=== PATIENT | female | born 1940 | race Caucasian/White ===

== ENCOUNTER 2018-10-19 07:33 | Emergency (ER) | payer MEDICARE, OTHER ==
[2018-10-19 07:55] LABS: #Lymphocytes 1.8 thou/uL (1.20-3.40); #Monocytes 0.4 thou/uL (0.11-0.59); #Neutrophils 7.7 thou/uL (1.40-6.50); %Basophils 0.4 % (0.0-1.0); %Eosinophils 0.5 % (0.0-10.0); %Lymphocytes 17.7 % (21.0-51.0); %Monocytes 4.3 % (0.0-10.0); %Neutrophils 77.1 % (42.0-75.0); Hemoglobin 13.7 g/dL (12.0-16.0); Mean Corpuscular HGB CONC 33.3 g/dL (32.0-36.0); Mean Corpuscular Hemoglobin 28.2 pg (27.0-31.0); Mean Corpuscular Volume 84.7 fL (78.0-98.0); Mean Platelet Volume 7.6 fL (7.4-10.4); Platelet Count 356 thou/uL (130-400); RBC Distribution Width 12.6 % (11.5-14.5); Red Blood Cell (RBC) Count 4.88 mill/uL (4.20-5.40)
--- NOTE | 2018-10-19 08:01 | RAD ---
Chest one view HISTORY: Syncope. FINDINGS: Cardiac silhouette is magnified by projection. Pulmonary vasculature is unremarkable. Media stinum is midline with aortic calcification. No confluent airspace consolidation or evidence of pneumothorax. chicken dresser leads overlie the chest. IMPRESSION: Atherosclerosis. No active cardiopulmonary abnormalities are otherwise demonstrated.
[2018-10-19 08:37] LABS: Bilirubin Negative (Negative); Blood, Urine Negative (Negative); Clarity CLEAR (Clear); Glucose, Urine (Dipstick) Negative (Negative); Leukocyte Moderate (Negative); Nitrite Negative (Negative); Protein, Urine (Dipstick) Negative (Neg-Trace); Specific Gravity, Urine 1.009 (1.002-1.036); Urobilinogen 0.2 mg/dL (0.2-1.0)
[2018-10-19 08:38] LABS: Bacteria/HPF None Seen HPF (None Seen); Hyaline Casts/LPF 0-3 HYALINE CAST LPF (0-3 Hyaline); Pathc Cast-AUWi Flag 0.13 (0-2.49); RBC/HPF 0-3 HPF (0-3); Squamous Epithelial 0-3 HPF (0-3)
[2018-10-19 08:46] LABS: Albumin 4.6 g/dL (3.4-4.8)
[2018-10-19 08:57] LABS: ALT (SGPT) 22 U/L (8-55); AST (SGOT) 23 U/L (5-34); Alkaline Phosphatase 52 U/L (40-150); BUN (Urea Nitrogen) 24 mg/dL (9.8-20.1); Bilirubin, Total 0.5 mg/dL (0.2-1.2); Calc. Creatinine Clearance 0 mL/min (70-130); Calcium 10.9 mg/dL (7.8-10.44); Carbon Dioxide 25 mmol/L (23-31); Chloride 101 mmol/L (98-107); Estimated GFR-MDRD 70; Globulin 3.2 g/dL (2.4-3.5); Glucose 139 mg/dL (83-110); Potassium 3.1 mmol/L (3.5-5.1); Protein, Total 7.9 g/dL (6.0-8.3); Sodium 139 mmol/L (136-145)
[2018-10-19 10:21] LABS: Anion Gap 16 mmol/L (10-20)
--- NOTE | 2018-10-26 15:25 | EKG ---
Test Reason : Blood Pressure : / mmHG Vent. Rate : 080 BPM Atrial Rate : 080 BPM P-R Int : 160 ms QRS Dur : 084 ms QT Int : 414 ms P-R-T Axes : 065 000 108 degrees QTc Int : 477 ms Normal sinus rhythm Prolonged QT Abnormal ECG Confirmed by SANDY PATTON D.O. ([id number]), story editor HELADIO NORWOOD ([id number]) on 10/26/2018 3:24:45 PM Referred By: Confirmed By:SANDY PATTON D.O.
== END 2018-10-19 09:42 | disposition home or self-care (01) ==
LOC: ERS 07:33
DX: R55 Syncope and collapse (principal); I10 Essential (primary) hypertension; Z79.899 Other long term (current) drug therapy; Z79.82 Long term (current) use of aspirin
CPT/HCPCS: 71045; 80053; 81003; 81015; 84484; 85025; 93005; 96360; 96361